=== PATIENT | female | born 1960 | race Caucasian/White ===

== ENCOUNTER 2020-02-02 07:05 | Outpatient (NON) | payer OTHER, SELFPAY ==
[2020-02-03 12:35] LABS: SARS-CoV-2 RNA PCR Negative
== END 2020-02-02 07:06 ==
LOC: ANHCOVIDDT 07:12
PROVIDERS: PCP Family Medicine; Visit Provider Family Medicine
DX: Z20.828 Contact with and (suspected) exposure to other viral communicable diseases (principal); R50.9 Fever, unspecified; J02.9 Acute pharyngitis, unspecified; R52 Pain, unspecified
CPT/HCPCS: 87635; C9803; U0003

== ENCOUNTER → 2021-08-18 08:39 | Outpatient (CLI) | payer OTHER, SELFPAY ==
--- NOTE | ~2021-08-18 | XR_ITS ---
EXAMINATION: XR knee RT min 4V DATE: 08/18/2021 08:57 INDICATION: Right knee pain TECHNIQUE: Four views of the right knee were obtained. COMPARISON: None. FINDINGS: Alignment is normal. No fracture or osteochondral lesion. There is mild tricompartmental os teoarthritis characterized by tiny marginal osteophytes and joint space narrowing. No joint effusion/ synovitis. Soft tissues are unremarkable. IMPRESSION: 1. Osteoarthritis Reviewed, dictated and finalized at location A. IMPRESSION: 1. Osteoarthritis
== END ==
PROVIDERS: PCP Orthopaedic Surgery; Visit Provider Family Medicine
DX: M17.11 Unilateral primary osteoarthritis, right knee (principal)
CPT/HCPCS: 73564

== ENCOUNTER 2021-08-21 10:32 | Outpatient (CLI) | payer OTHER, SELFPAY ==
--- NOTE | ~2021-08-21 | US_ITS ---
EXAMINATION: US venous doppler LE RT DATE: 08/21/2021 11:10 INDICATION: Right lower limb pain TECHNIQUE: Grayscale ultrasound images without and with compression and Doppler ultrasound images of the right lower extremity veins were obtained. COMPARISON: None. FINDINGS: The visualized portions of right common femoral vein, profunda (deep) femoral vein, femoral vein, pop liteal vein, peroneal trunk, posterior tibial veins, peroneal veins, lesser saphenous vein and greate r saphenous vein outflow are patent. IMPRESSION: 1. No deep venous thrombosis in the right lower limb. Reviewed, dictated and finalized at location B.
== END 2021-08-21 10:33 | disposition home or self-care (01) ==
PROVIDERS: PCP Family Medicine; Visit Provider Orthopaedic Surgery
DX: M79.604 Pain in right leg (principal)
CPT/HCPCS: 93971

== ENCOUNTER → 2022-10-26 15:45 | Outpatient (CLI) | payer OTHER, SELFPAY ==
--- NOTE | ~2022-10-26 | XR_ITS ---
XR hip RT min 2V DATE: 10/26/2022 15:53 INDICATION: Low back pain, right sciatica TECHNIQUE: AP and lateral views of right hip COMPARISON: None FINDINGS: There is prominent joint space and spurring consistent with moderately severe right hip ost eoarthritis. The pubic symphysis and sacral iliac joints are intact. No right hip fracture, dislocation, avascular necrosis or bone destruction is detected. IMPRESSION: Moderately severe right hip osteoarthritis Reviewed, dictated and finalized at location B.
--- NOTE | ~2022-10-26 | XR_ITS ---
XR lumbar spine 2-3V DATE: 10/26/2022 15:51 INDICATION: Low back pain, right sciatica TECHNIQUE: AP, lateral, coned lateral lumbosacral views COMPARISON: None FINDINGS: Normal alignment of the lumbar spine. No fracture or bone destruction or spondylolisthesis. The included lower thoracic and lumbar pedicles are intact. There is multilevel degenerative disc disease, most prominent at L4-5 and L5-S1. The sacroiliac joints are intact. Status post cholecystectomy. IMPRESSION: Moderately severe degenerative disc disease at L4-5 and L5-S1 Reviewed, dictated and finalized at location B.
== END ==
PROVIDERS: PCP Family Medicine; Visit Provider Physician Assistant
DX: M54.16 Radiculopathy, lumbar region (principal); M16.11 Unilateral primary osteoarthritis, right hip; M51.36 Other intervertebral disc degeneration, lumbar region; M51.37 Other intervertebral disc degeneration, lumbosacral region
CPT/HCPCS: 72100; 73502

== ENCOUNTER 2022-11-13 08:15 | Outpatient (CLI) | payer OTHER, SELFPAY ==
[2022-11-13 10:13] LABS: Basophils Percent Auto 0.8 % (0.2-1.2); Eosinophils Absolute Auto 0.2 K/mm3 (0-0.3); Eosinophils Percent Auto 3.6 % (0-4.4); Hematocrit 41.3 % (37.0-47.0); Hemoglobin 13.4 g/dL (12.0-15.0); Immature Granulocyte Absolute 0.01 K/mm3 (0.00-0.031); Immature Granulocyte Percent A 0.2 % (0-0.5); Lymphocytes Absolute Auto 1.66 K/mm3 (0.9-3.2); Lymphocytes Percent Auto 34.7 % (18.3-44.2); Mean Corpuscular HGB Conc 32.4 g/dl (32-36); Mean Corpuscular Hemoglobin 30.2 pg (26-34); Mean Platelet Volume 11.1 fl (7.4-10.4); Monocytes Absolute Auto 0.3 K/mm3 (0.1-0.6); Monocytes Percent Auto 6.9 % (2.6-8.5); Neutrophils Absolute Auto 2.6 K/mm3 (1.3-6.7); Neutrophils Percent Auto 53.8 % (45.5-73.1); Platelet Count Result 240 k/mm3 (150-375); Red Blood Count 4.44 M/mm3 (4.2-5.4); White Blood Count 4.8 K/mm3 (4.5-10.0)
[2022-11-13 10:28] LABS: Alanine Aminotransferase 22 U/L (6-35); Albumin Level 4.1 g/dL (3.5-5.1); Alkaline Phosphatase 74 U/L (38-126); Anion Gap 6 mmol/L (8-16); Aspartate Amino Transferase 32 U/L (14-36); Bilirubin,Total 0.8 mg/dL (0.2-1.3); Blood Urea Nitrogen 25 mg/dL (7-17); Calcium 9.2 mg/dL (8.4-10.2); Carbon Dioxide 31 mmol/L (22-30); Chloride 103 mmol/L (98-107); Cholesterol 225 mg/dL (0-200); Estimated Glomerular Filt Rate > 60; Glucose 91 mg/dL (65-110); HDL Direct 61 mg/dL; Potassium 4.8 mmol/L (3.4-5.0); Sodium 140 mmol/L (137-145); Triglycerides 113 mg/dL (<150)
[2022-11-13 10:46] LABS: LDL Cholesterol Direct 115 mg/dL
[2022-11-13 20:59] LABS: Hemoglobin A1C 5.2 % (<5.7)
== END 2022-11-13 08:16 | disposition home or self-care (01) ==
LOC: ANHGOSHLAB 08:16
PROVIDERS: PCP Family Medicine; Visit Provider Family Medicine
DX: E78.2 Mixed hyperlipidemia (principal); E66.9 Obesity, unspecified; E04.9 Nontoxic goiter, unspecified
CPT/HCPCS: 36415; 80053; 80061; 83036; 84443; 85025

== ENCOUNTER 2023-05-09 15:18 | Emergency (ER) | payer OTHER, SELFPAY ==
--- NOTE | 2023-05-09 15:29 | ED.FEMALEGU ---
HPI - Female Genitourinary General Chief complaint: Urogenital-Female Stated complaint: uti,bladder/kidney inf Source: patient and RN notes reviewed Mode of arrival: ambulatory Limitations: no limitations History of Present Illness HPI Narrative: 63-year-old female presented for complaint of lower abdominal/suprapubic pressure and lower abdominal pain. Onset yesterday, Worsening today. Reports back pain is in the middle of the lower back. Denies burning with urination but endorses pressure and 'could go for a long time.' Denies hematuria, nausea, vomiting, abdominal pain, flank pain, constipation, diarrhea, or fever. States she felt like she could not get warm. Related Data Allergies Allergy/AdvReac Type Severity Reaction Status Date / Time No Known Allergies Allergy Verified 05/09/23 15:25 Review of Systems Review of Systems: CONSTITUTIONAL: Denies body aches, fever, chills, or sweats. CARDIOVASCULAR: Denies chest pain, palpitations, or edema. RESPIRATORY: Denies cough or dyspnea. GASTROINTESTINAL: Denies abdominal pain, nausea, vomiting, or diarrhea. GENITOURINARY: Reports dysuria, frequency, urgency, denies hematuria, flank pain SKIN: Denies rash, itching, or wounds. MUSCULOSKELETAL: Denies back pain or myalgia. 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 Please see nursing chart for further information. There is no relevant family history pertinent to the presenting complaint Exam Narrative: GENERAL: Well-appearing ENT: Mucous membranes pink and moist. NECK: Normal AROM. Supple. CHEST: No respiratory distress. Clear to auscultation. HEART: Regular rate and rhythm. ABDOMEN: Soft, nondistended, normal active bowel sounds. Suprapubic tenderness with palpation. No CVA tenderness SKIN: Warm, dry, no rash. NEURO: No focal deficits. Alert and oriented x3. Gait steady. PSYCH: Normal affect. Course Course Emergency Course: Patient is aware of diagnosis, understands and agrees to treatment plan. Anticipatory guidance given. Patient agrees to follow-up as directed and is aware of reasons to seek care at the emergency department. Portions of this record may have been created with voice recognition software Level of Care: Express Care Visit Vital Signs Vital signs: Reviewed MDM - Female Genitourinary MDM Narrative Medical decision making narrative: Discussed physical exam findings and urine result. Advised supportive measures and signs/symptoms to go to the ER. Pt is appropriate for outpt treatment and f/u. Differential Diagnosis Differential diagnosis: Likely urinary tract infection, cystitis and other Discharge Plan Discharge Clinical Impression: Dysuria Patient Disposition: Home, Self-Care Condition: Stable Instructions: Antibiotic Form, Urinary Tract Infection in Women (ED) Additional Instructions: Take the antibiotic as prescribed The urine will be sent of for a culture to identify what type of melissa
[2023-05-09 15:31] VITALS: BP 111/81; PULSE 86; RESP 16; TEMP 37.3; O2SAT 99
== END 2023-05-09 15:46 | disposition home or self-care (01) ==
PROVIDERS: Emergency Provider Nurse Practitioner Family; PCP Family Medicine
DX: N39.0 Urinary tract infection, site not specified (principal); B96.20 Unspecified Escherichia coli [E. coli] as the cause of diseases classified elsewhere; M19.90 Unspecified osteoarthritis, unspecified site
CPT/HCPCS: 81003; 87077; 87086; 87088; 87186; 99213; G0463

== ENCOUNTER 2024-01-18 08:48 | Outpatient (CLI) | payer OTHER, SELFPAY ==
[2024-01-18 13:38] LABS: Alanine Aminotransferase 17 U/L (6-35); Albumin Level 4.2 g/dL (3.5-5.1); Alkaline Phosphatase 76 U/L (38-126); Anion Gap 5 mmol/L (4-12); Aspartate Amino Transferase 49 U/L (14-36); Bilirubin,Total 1.4 mg/dL (0.2-1.3); Blood Urea Nitrogen 22 mg/dL (7-17); Calcium 9.4 mg/dL (8.4-10.2); Carbon Dioxide 31 mmol/L (22-30); Chloride 103 mmol/L (98-107); Cholesterol 236 mg/dL (0-200); Estimated Glomerular Filt Rate > 60; Glucose 87 mg/dL (65-110); HDL Direct 63 mg/dL; Potassium 4.5 mmol/L (3.4-5.0); Sodium 139 mmol/L (137-145); Triglycerides 125 mg/dL (<150)
[2024-01-18 13:47] LABS: Basophils Absolute Auto 0.1 K/mm3 (0.0-0.1); Eosinophils Absolute Auto 0.3 K/mm3 (0-0.3); Eosinophils Percent Auto 5.6 % (0-4.4); Hematocrit 42.2 % (37.0-47.0); Hemoglobin 13.8 g/dL (12.0-15.0); Immature Granulocyte Absolute 0.01 K/mm3 (0.00-0.031); Immature Granulocyte Percent A 0.2 % (0-0.5); Lymphocytes Absolute Auto 1.62 K/mm3 (0.9-3.2); Lymphocytes Percent Auto 33.7 % (18.3-44.2); Mean Corpuscular HGB Conc 32.7 g/dl (32-36); Mean Corpuscular Hemoglobin 31.4 pg (26-34); Mean Corpuscular Volume 95.9 fl (80-100); Mean Platelet Volume 11.3 fl (7.4-10.4); Monocytes Absolute Auto 0.4 K/mm3 (0.1-0.6); Monocytes Percent Auto 9.1 % (2.6-8.5); Neutrophils Absolute Auto 2.4 K/mm3 (1.3-6.7); Neutrophils Percent Auto 50.4 % (45.5-73.1); Platelet Count Result 223 k/mm3 (150-375); Red Cell Distribution Width 12.2 % (11.5-14.5); White Blood Count 4.8 K/mm3 (4.5-10.0)
[2024-01-18 14:07] LABS: LDL Cholesterol Direct 113 mg/dL
[2024-01-18 17:17] LABS: Hemoglobin A1C 5.6 % (<5.7)
== END 2024-01-18 08:49 | disposition home or self-care (01) ==
LOC: ANHGOSHLAB 08:49
PROVIDERS: PCP Family Medicine; Visit Provider Family Medicine
DX: Z00.00 Encounter for general adult medical examination without abnormal findings (principal); E04.9 Nontoxic goiter, unspecified
CPT/HCPCS: 36415; 80053; 80061; 83036; 84443; 85025

== ENCOUNTER 2024-03-31 15:00 | Outpatient (CLI) | payer OTHER, SELFPAY ==
--- NOTE | ~2024-03-31 | MM_ITS ---
EXAMINATION: MM screening jeana BI w timbo HISTORY: Screening TECHNIQUE: Craniocaudal and mediolateral oblique 3-D tomosynthesis images were obtained and synthetic 2-D images were generated. CAD analysis was submitted and interpreted. COMPARISON: 03/03/2019 BREAST PARENCHYMAL COMPOSITION: Not Dense: The breasts are almost entirely fatty. FINDINGS: There is no evidence of suspicious mass, calcification, or architectural distortion to sugg est malignancy in either breast. There has been no suspicious interval change. IMPRESSION: 1. No mammographic evidence of malignancy. 2. Recommend routine screening mammography in one year. BI-RADS Category 1: Negative Reviewed, dictated and finalized at location B. ICATION DEVELOPMENT PROJECT MANAGER
--- OUTSIDE RECORDS SUMMARY | 2024-03-31 15:28 | XMS_ITS | Patient Health Summary ---
Author Organization [facility] Address [address] [place] [address] Care Team Providers Care Band Shover Name Role Phone Starr Werner MD Primary Care Provider [phone] Note from [facility],non-owned Affiliates and Associated Physician Practices is amultiple site organization consisting of ambulatory clinics and hospital sitesin [place], [place], [place] and [place]. This disclosure is being madepursuant to the Care Everywhere program and may not contain all information available regarding this patient. Last updated 17.[facility] Social History Tobacco Use Types Packs/Day Years Used Date Smoking Tobacco: Never Assessed Sex and Gender Information Value Date Recorded Sex Assigned at Not on file Gender Identity Not on file Sexual Orientation Not on file Care Teams Band Shover Relationship Specialty Start Date End Date Starr Wrener MD [address] [place] [address] PCP - General Family Medicine 08/20/22
--- OUTSIDE RECORDS SUMMARY | 2024-03-31 15:28 | XMS_ITS | Clinical Summary ---
Author Organization [facility] Address [address] [place] [address] Care Team Providers Care Buccaro Name Role Phone Starr Werner MD Primary Care Provider [phone] Source Comments [facility],non-owned Affiliates and Associated Physician Practices is amultiple site organization consisting of ambulatory clinics and hospital sitesin [place], [place], [place]. This disclosure is being madepursuant to the Care Everywhere program and may not contain all information available regarding this patient. Last updated 17.[facility] Social History Tobacco Use Types Packs/Day Years Used Date Smoking Tobacco: Never Assessed Sex and Gender Information Value Date Recorded Sex Assigned at Not on file Gender Identity Not on file Sexual Orientation Not on file Plan of Treatment Health Maintenance Due Date Last Done Comments COLOGUARD (AGES 45-75) - COL ON CA SCREENING 1962 COLON MONITORING 1962 COLONOSCOPY - COLON CA SCREENING 1962 CT COLONOGRAPHY - COLON CA SCREENING 1962 Colorectal Cancer Screening 1962 FIT - COLON CA SCREENING 1962 FLEX SIG - COLON CA SCREENING 1962 LIPID TESTING 1962 MAMMOGRAM 1962 PAP SMEAR 1962 HIV SCREENING 1977 HEPATITIS C SCREENING 01/22/1980 DTAP/TDAP/TD VACCINES (1 - Tdap) 1981 PNEUMOCOCCAL VACCINE 50+ (1 of 1 - PCV) 01/27/2012 ZOSTER VACCINE (1 of 2) 01/27/2012 COVID-19 VACCINE (1 - 2023-2 5 season) 2023 INFLUENZA VACCINE (#1) 2023 DEPRESSION SCREENING 03/01/2024 Respiratory Syncytial Virus (RSV) Vaccine Pt: or over 60 yrs (1 - 1-dose 75+ series) 2037 HEPATITIS B VACCINE Aged Out No longe r eligible based on patient's age to complete this topic HIB VACCINE Aged Out No longer eligi ble based on patient's age to complete this topic HPV VACCINE Aged Out No longer eligi ble based on patient's age to complete this topic MENINGOCOCCAL (Group B) VACCINE Aged Out No longer eligible based on patient's age to complete this topic MENINGOCOCCAL VACCINE Aged Out No ariella annabel eligible based on patient's age to complete this topic PNEUMOCOCCAL VACCINE Aged Out No long er eligible based on patient's age to complete this topic Care Teams Buccaro Relationship Specialty Start Date End Date Starr Werner MD [address] [place] [address] PCP - General Family Medicine 08/20/22
--- OUTSIDE RECORDS SUMMARY | 2024-03-31 15:28 | XMS_ITS | Clinical Summary ---
Author Organization [facility] Address [address] [place] [address]. [place], [place] [address] [place] [address] Care Team Providers Care Hospice Coordinator Name Role Phone Unavailable Primary Care Provider Unavailabl e Social History Tobacco Use Types Packs/Day Years Used Date Smoking Tobacco: Never Assessed Comments Unknown Sex and Gender Information Value Date Recorded Sex Assigned at Not on file Legal Sex Female 7:24 PM CDT Gender Identity Not on file Sexual Orientation Not on file Last Filed Vital Signs Vital Sign Reading Time Taken Comments Blood Pressure 100/70 01/28/2017 2:01 PM CRIMINAL LAWYER Pulse 76 01/28/2017 2:01 PM CRIMINAL LAWYER Temperature - - Respiratory Rate - - Oxygen Saturation - - Inhaled Oxygen Concentration - - Weight 103 kg (227 lb) 01/28/2017 2:01 PM CRIMINAL LAWYER Height 169.5 cm (5' 6.75 ) 01/28/2017 2:01 PM CS T Body Mass Index 35.82 01/28/2017 2:01 PM CRIMINAL LAWYER Plan of Treatment Health Maintenance Due Date Last Done Comments Cervical Cancer Screening Pa p Smear (Age 30 to 64) Every 3 Years 1962 Colorectal Cancer Screening Colonoscopy (10 Years) 1962 Annual Physical 1965 Hepatitis C 01/27/1980 DTaP, Tdap and Td Vaccines ( 1 - Tdap) 1981 Cervical Cancer Screening Pa p with HPV Testing (Age 30 to 64) Every 5 Years 01/27/1992 Cervical Cancer Screening with HPV 01/27/1992 Mammogram Screening 2002 Zoster Vaccines (1 of 2) 01/27/2012 COVID-19 Vaccine ( - 2023-2 5 season) 2023 Influenza Adult (#1) 2023 RSV Immunization or 60+ Years (1 - 1-dose 75+ series) 2037 Meningococcal B Vaccine Aged Out No l onger eligible based on patient's age to complete this topic Meningococcal Vaccine Aged Out No ariella annabel eligible based on patient's age to complete this topic Pneumococcal Vaccine: Pediat rics (0 to 5 Years) and At-Risk Patients (6 to 64 Years) Aged Out No longer eligible b ased on patient's age to complete this topic RSV Immunizations Under 20 Months Aged Out No longer eligible based on patient's age to complete this topic
--- OUTSIDE RECORDS SUMMARY | 2024-03-31 15:28 | XMS_ITS | Referral Summary ---
Author Organization [facility] Address [address] [place] [address] Care Team Providers Care Dining Room Maid Name Role Phone Starr Werner MD Primary Care Provider [phone] Source Comments [facility],non-owned Affiliates and Associated Physician Practices is amultiple site organization consisting of ambulatory clinics and hospital sitesin [place], [place], [place] and [place]. This disclosure is being madepursuant to the Care Everywhere program and may not contain all information available regarding this patient. Last updated 17.[facility] Social History Tobacco Use Types Packs/Day Years Used Date Smoking Tobacco: Never Assessed Sex and Gender Information Value Date Recorded Sex Assigned at Not on file Gender Identity Not on file Sexual Orientation Not on file Plan of Treatment Not on file Care Teams Dining Room Maid Relationship Specialty Start Date End Date Starr Werner MD [address] [place] [id number] PCP - General Family Medicine 08/20/22
== END 2024-03-31 15:01 | disposition home or self-care (01) ==
LOC: ANHIMG 15:23
PROVIDERS: PCP Family Medicine; Visit Provider Family Medicine
DX: Z12.31 Encounter for screening mammogram for malignant neoplasm of breast (principal)
CPT/HCPCS: 77063; 77067

== ENCOUNTER 2024-05-13 15:31 | Emergency (ER) | payer OTHER, SELFPAY ==
--- NOTE | 2024-05-13 15:37 | ED_ITS ---
HPI - URI/Sore Throat General Chief Complaint: Upper Respiratory Infection Stated Complaint: upper resp, cough Source: patient and RN notes reviewed Mode of arrival: ambulatory Limitations: no limitations History of Present Illness HPI Narrative: 64-year-old female presented for complaint of frontal headache, nasal congestion and drainage, and cough. Onset 1 month, states she felt better for several days and then symptoms returned over the past few days. Denies associated shortness of breath, wheezing, nausea, vomiting, diarrhea, fevers or lethargy. MD elicited complaint: cough Related Data Allergies Allergy/AdvReac Type Severity Reaction Status Date / Time No Known Allergies Allergy Verified 05/13/24 15:47 Review of Systems Review of Systems: ROS per HPI [facility] Past Medical History Medical History (Updated 05/13/24 @ 16:02 by Margoth Mcdowell APRN) Arthritis Hordeolum Surgical History Surgical History (Updated 12/30/23 @ 14:40 by Cheyenne Lemus MA) History of total right hip replacement History of left knee surgery History of cholecystectomy Family History Family History Sibling Family history of malignant neoplasm of breast in first degree relative Family history of alcoholism Other Depression Social History Social History Smoking status: Never smoker Second hand tobacco smoke exposure: No Alcohol intake: current Substance use: never Living arrangements: with family Occupation/Education: occupation 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 EYES: PERRLA, conjunctivae clear ENT: Mucous membranes moist. TM pearly zaidi with dull light reflex bilaterally; no tragal tenderness. Oropharynx erythematous without lesions or exudate, no drooling, no hoarseness, no trismus, uvula midline. NECK: Supple. No lymphadenopathy CHEST: Clear to auscultation, breath sounds equal. No wheezing, rhonchi, rales, or stridor. No respiratory distress, speaks in full sentences. HEART: Regular rate and rhythm. SKIN: Warm, dry, no rash. NEURO: Alert and oriented x3. PSYCH: Normal mood and affect Course Course Emergency Course: Patient is aware of diagnosis, understands and agrees to treatment plan. Anticipatory guidance given. Patient agrees to follow-up as directed and is aware of reasons to seek care at the emergency department. Portions of this record may have been created with voice recognition software Level of Care: Express Care Visit Vital Signs Vital signs: Vital Signs Pulse Oximetry 99 05/13/24 15:45 Oxygen Delivery Room Air 05/13/24 15:45 Temperature 98.2 F 05/13/24 15:46 Pulse Rate 76 05/13/24 15:46 Respiratory Rate 16 05/13/24 15:46 Blood Pressure 134/89 05/13/24 15:46 Pulse Oximetry 100 05/13/24 15:46 Oxygen Delivery Room Air 05/13/24 15:46 reviewed MDM - URI/Sore Throat MDM Narrative Medical decision making narrative: Negative flu and COVID. Discussed physical exam findings c/w sinusitis Advised supportive measures and signs/symptoms to go to the ER. Pt is appropriate for outpt treatment and f/u. Differential Diagnosis Differential diagnosis: Likely upper respiratory infection, sinusitis and viral infection Discharge Plan Discharge Clinical Impression: Sinusitis Patient Disposition: Home, Self-Care Condition: Stable Instructions: Antibiotic Form, Sinusitis (ED) Additional Instructions: Take antibiotic as directed Recommendations: Flonase spray and Zyrtec (or Claritin/Isamar) over the counter Cough syrup may cause drowsiness; avoid driving or take it at night time. Tylenol 1000mg every 8 hours as needed for pain Symptomatic treatment includes: rest, fluids, and increase humidity of the air at home. Follow up with your primary care provider in 1 week. Go to the ER for worsening symptoms or concerns. Patient Language: Bulgarian Prescriptions: New amoxicillin-pot clavulanate 875-125 mg tablet 1 tablet PO Q12H 7 Days Qty: 14 0RF Follow-up/Referrals: Starr Werner MD [Primary Care Provider] -
[2024-05-13 15:45] VITALS: O2SAT 99
[2024-05-13 15:46] VITALS: BP 134/89; PULSE 76; RESP 16; TEMP 36.8; O2SAT 100
[2024-05-13 16:06] LABS: EDCOVIDSCREEN Negative (Negative); EDINFLUASCREEN Negative (Negative); EDINFLUBSCREEN Negative (Negative)
== END 2024-05-13 16:07 | disposition home or self-care (01) ==
PROVIDERS: Emergency Provider Nurse Practitioner Family; PCP Family Medicine
DX: J32.9 Chronic sinusitis, unspecified (principal); Z20.822 Contact with and (suspected) exposure to COVID-19; M19.90 Unspecified osteoarthritis, unspecified site; Z96.641 Presence of right artificial hip joint
CPT/HCPCS: 87426; 87804; 99213; G0463

== ENCOUNTER 2024-06-07 09:23 | Outpatient (CLI) | payer OTHER, SELFPAY ==
--- NOTE | ~2024-06-07 | DEXA_ITS ---
Bone Density Report Name: MARIA TERESA ONTIVEROS Age: 64 Sex: Female Ethnicity: White Date of : 1960 Indication: postmenopausal; screening for osteoporosis; height loss; prior fracture; Referring Provider: CAITLYN SILVA Study: Bone densitometry was performed. Exam Date: June 07, 2024 Accession number: [id number] Bone Density: Region BMD T-score Z-score Classification AP Spine(L1-L4) 0.987 -0.5 1.0 Normal Femoral Neck (Left) 0.679 -1.5 -0.1 Osteopenia Total Hip (Left) 0.819 -1.0 0.1 Normal World Health Organization criteria for BMD impression classify patients as: Normal (T-score at or above -1.0), Osteopenia (T-score between -1.0 and -2.5), or Osteoporosis (T-score at or below -2.5). 10-year Fracture Risk(1): Major Osteoporotic Fracture 13% Hip Fracture 1.2% Reported Risk Factors: [place] (), Neck BMD=0.679, BMI=37.0, previous fracture (1) FRAX(R) Version 3.08. Fracture probability calculated for an untreated patient. Fracture probability may be lower if the patient has received treatment. Clinical Information Provided by Patient: Has had a low trauma fracture Has used the following medications: Vitamin D, Calcium Patient maximum height was 68.0 Menopause Age: 44 Drinks caffeinated beverages Onset of menses at age 15 Number of children 2 Impression: The patient has low bone mass, based on the Left Femoral Neck T-score. The patient has an estimated ten-year risk of hip fracture of 1.2% and an estimated ten-year risk of major fracture of 13%, based on the WHO FRAX algorithm. The patient has risk factors, including: previous fracture. Discussion: BONE DENSITY IS LOW AT ONE OR MORE SKELETAL SITES. This patient's lowest T-score is low at one or more skeletal sites. It meets the World Health Organization's (WHO) criteria for ?low bone mass? (T-score between -1.0 and -2.5). The patient's 10-year risk of fracture as calculated by FRAX is less than the threshold where pharmacological therapy is recommended by the National Osteoporosis Foundation (NOF). However, all treatment decisions require clinical judgment and consideration of individual patient factors, including patient preferences, comorbidities, previous drug use, risk factors not captured in the FRAX model (e.g., frailty, falls, vitamin D deficiency, increased bone turnover, interval significant decline in bone density) and possible under or overestimation of fracture risk by FRAX. The patient should follow a healthful lifestyle (good nutrition with adequate calcium and vitamin D, and appropriate weight-bearing exercise). Follow-Up: Consider repeating this study in 2 to 3 years to reassess this patient's status, or sooner if there is some new clinical indication. Reported by: EMILE on 06/07/2024 9:57:00 AM. Reviewed, dictated and finalized at location [facility]
--- OUTSIDE RECORDS SUMMARY | 2024-06-07 10:21 | XMS_ITS | Referral Summary ---
Author Organization [facility] Address [address] [place] [id number] Care Team Providers Care Helmet Coverer Name Role Phone Starr Werner MD Primary Care Provider + Allergies No known active allergies Medications amoxicillin 500 mg tablet/capsuleIn dications:Prophy lactic antibiotic TAKE 4 PILL 1 HOUR BEFORE DENTAL APPOINTMENT . 4 tablet/capsul e 5 04/19/2023 Active Active Problems Problem Noted Date Diagnosed Date Degeneration of lumbar intervertebral disc 12/01 Low back pain 12/01/2022 Lumbar radiculopathy 12/01/2022 Lumbosacral spondylosis without myelopathy 12/01 Primary localized osteoarthritis of pelvic regio n and thigh 12/01/2022 Primary osteoarthritis 12/01/2022 Pain in right knee 12/01/2022 Right hip pain 12/01/2022 Sacroiliitis, not elsewhere classified Osteoarthritis of left knee, unspecified osteoarthritis type 08/20/2022 Class 2 obesity in adult 08/04/2022 Primary osteoarthritis of left knee 06/15/2022 Complex tear of medial menis cus of right knee as current injury 11/14/2021 Overview (11/14/2021): Added automatically from request for surgery [id number] Social History Tobacco Use Types Packs/Day Years Used Date Smoking Tobacco: Never Smokeless Tobacco: Never AUDIT-C Answer Date Recorded Q1: How often do you have a drink containing alc ohol? 2-4 times a month 01/15/2023 Average Number of Drinks Not on file 023 Frequency of Binge Drinking Not on file 12/30 Personal Safety Answer Date Recorded Have you ever been in or are you currently in a harmful physical or emotional relationship or is someone making you feel afraid or unsafe? Denies 01/15/2023 Comments No Sex and Gender Information Value Date Recorded Sex Assigned at Not on file Legal Sex Female 3:55 PM CDT Gender Identity Not on file Sexual Orientation Not on file Last Filed Vital Signs Vital Sign Reading Time Taken Comments Blood Pressure 118/58 01/15/2023 11:15 AM LAWYER Pulse 65 01/15/2023 11:20 AM LAWYER Temperature 36 C (96.8 F) 01/15/2023 11:05 AM LAWYER Respiratory Rate 24 01/15/2023 11:20 AM LAWYER Oxygen Saturation 99% 01/15/2023 11:20 AM LAWYER Inhaled Oxygen Concentration - - Weight 106.6 kg (235 lb) 01/15/2023 5:56 AM LAWYER Height 167.6 cm (5' 6 ) 01/15/2023 5:56 AM LAWYER Body Mass Index 37.93 01/15/2023 5:56 AM LAWYER Plan of Treatment Not on file Medical Devices Implanted Type Area Fisher Swordfish Device Identifier Shelf Expiration Date Model / Serial / Lot [employer] Smartset Medium Viscosity Cement 40gm Bone Gentamicin [id number] - [id number] Implanted:Qty: 1 on 08/20/2022 by Brandon Luis MD at [facility] Bone Cement Left: Knee [employer] [id number] 12/30/2023 [id number] / / Screws Left: Knee [employer] Attune Cruciate Retain Cementless Knee Left 7 Component Femoral [id number] - [id number] Implanted:Qty: 1 on 08/20/2022 by Brandon Luis MD at [facility] Left: Knee [employer] [id number] 06/28/2032 [id number] / / [employer] Insert Tibial Knee Fixed Lm Posterior Stabilized Attune 7mm Size 7 Polyethylene [id number] - [id number] Implanted:Qty: 1 on 08/20/2022 by Brandon Luis MD at [facility] Left: Knee [employer] [id number] 05/29/2030 [id number] / / [employer] Attune Fb Tib Base Sz 7 Por [id number] - [id number] Implanted:Qty: 1 on 08/20/2022 by Brandon Luis MD at [facility] Left: Knee [employer] [id number] 05/29/2032 [id number] / / [employer] Bi Mentum 53mm Press Fit Femoral Proximal Cup Acetabular [id number] - [id number] Implanted:Qty: 1 on 01/15/2023 by Brandon Luis MD at [facility] Right: Hip [employer] [id number] / / [id number] [employer] Liner Acet Hip Size 28 Poly Bi Mentum Altrx 53mm [id number] - [id number] Implanted:Qty: 1 on 01/15/2023 by Brandon Luis MD at [facility] Right: Hip [employer] 10/29/2026 [id number] / / [id number] Dep[employer] Actis L111 Mm Collar Hip 8 High Offset Stem Femoral [id number] - [id number] Implanted:Qty: 1 on 01/15/2023 by Brandon Luis MD at [facility] Right: Hip [employer] [id number] 06/28/2032 [id number] / / [id number] [employer] Articul/Clarence 28mm Cementless Hip +1.5mm 12/14 Taper Head Femoral Latex Free [id number] - [id number] Implanted:Qty: 1 on 01/15/2023 by Brandon Luis MD at [facility] Right: Hip [employer] 09/29/2027 [id number] / / [id number] Insurance [facility] [employer] H[facility]/PPO Address: [address] [place] [address] [facility] [employer] H[facility]/PPO Address: [address] [place] [address] Advance Directives For more information, please contact: [phone] * Full Code (Latest Code Status on File) Date Activated Date Inactivated Comments 08/20/2022 8:32 AM 08/20/2022 4:30 PM Care Teams Helmet Coverer Relationship Specialty Start Date End Date Starr Werner MD PCP - General Family Medicine 11/14/21
--- OUTSIDE RECORDS SUMMARY | 2024-06-07 10:21 | XMS_ITS | Clinical Summary ---
Author Organization [email or web address] Address [address] [place] [address] Care Team Providers Care Cooker Process Cheese Name Role Phone Starr Werner MD Primary Care Provider [phone] Source Comments [facility],non-owned Affiliates and Associated Physician Practices is amultiple site organization consisting of ambulatory clinics and hospital sitesin [place], [place], [place]. This disclosure is being madepursuant to the Care Everywhere program and may not contain all information available regarding this patient. Last updated 17.[email or web address] Social History Tobacco Use Types Packs/Day Years [...] to complete this topic MENINGOCOCCAL (Group B) VACC INE SHARED DECISION-MAKING Aged Out No longer eligibl e based on patient's age to complete this topic MENINGOCOCCAL GROUPS A/C/Y/W VACCINE Aged Out No longer eligible b ased on patient's age to complete this topic PNEUMOCOCCAL VACCINE Aged Out No long er eligible based on patient's age to complete this topic Care Teams Cooker Process Cheese Relationship Specialty Start Date End Date Starr Werner MD [address] [place] [address] PCP - General Family Medicine 08/20/22
--- OUTSIDE RECORDS SUMMARY | 2024-06-07 10:21 | XMS_ITS | Patient Health Record ---
Author Organization [facility] Address [address] [place] [address] MAGALIS Sotomayor [address] Care Team Providers Care Admissions Coordinator Name Role Phone CAITLYN SILVA MD Primary Care Provider Unav ailable Janes Escobar Unavailable [phone] ALLERGIES No Known Allergies REASON FOR REFERRAL No Information MEDICATIONS Medication SIG (Take, Route, Frequency, Duration) Notes Start Date End Date Status Meloxicam 15 MG 1 tablet Orally Once a day for 30 day(s) Active Tylenol Extra Strength 500 MG 1 tablet as needed Orally every 6 hrs Active Magnesium Active oxyCODONE HCl 5 MG 1 tablet as needed O rally every 6 hrs Active traMADol HCl 50 MG 1 tablet as needed O rally Once a day Active SOCIAL HISTORY Tobacco Use: Social History Observation Description Date Details (start date - stop date) Never Smoker NA - NA Sex Assigned At : Social History Observation Description Sex Assigned At Unknown Tobacco Use/Smoking Question Answer Notes Are you a nonsmoker Alcohol Screen (Audit-C) Question Answer Notes Did you have a drink containing alcohol in the p ast year? No Points 0 Interpretation Negative PROBLEMS Problem Type ICD Code Onset Dates Problem Status W/U Status Risk SNOMED Code Notes Problem Morbid (severe) obesity due to excess calories (E66.01) Active confirmed Morbid obesity (disorder) (225259551) Problem Unilateral primary osteoarthritis, right hip (M16.11) Active confirmed Localized, primary osteoarthritis of the pelvic region and thigh (776508925) Problem Unilateral primary osteoarthritis, right knee (M17.11) Active confirmed Primary osteoarthritis (826192154) Problem Pain in right hip (M25.551) Active confirmed Arthralgia of t he pelvic region and thigh (213971898) Problem Pain in right knee (M25.561) Active confirmed Pain of right knee region (finding) (499758251613234) Problem Sacroiliitis, not elsewhere classified (M46.1) Active confirmed Solitary sacroiliitis (729289330) Problem Spondylosis without myelopathy or radiculopathy, lumbar region (M47.816) Active confirmed Lumbosacral spondylosis without myelopathy (17541539) Problem Spondylosis without myelopathy or radiculopathy, lumbosacral region (M47.817) Active confirmed Lumbosacral spondylosis without myelopathy (disorder) (88073295) Problem Other intervertebral disc degeneration, lumbar region (M51.36) Active confirmed Degeneration of lumbar intervertebral disc (73037344) Problem Radiculopathy, lumbar region (M54.16) Active confirmed Lumbar radiculopathy (947545178) Problem terminal carman (current) use of anticoagulants (Z79.01) Active confirmed Long-term curre nt use of anticoagulant (625512369) Problem Low back pain, unspecified (M54.50) Active confirmed Low back pain (993655054) PLAN OF TREATMENT Pending Test Test Name Order Date MRI : Lumbar Spine without contrast (721 48) 11/26/2022 Insurance Providers Payer Name Payer Address Payer Phone Subscriber Number Group Number Insured Name Patient Relationship to Insured Coverage Start Date Coverage End Date [facility] [address] [address] [place] [address] [phone] [id number] MARIA TERESA ONTIVEROS Self - patient is the insured MEDICAL (GENERAL) HISTORY Medical History History ICD Code Arthritis Surgical History Surgery Date(Month/Year) Left total knee arthroplasty-Dr. Luis 07/2022 Cholecystectomy
--- OUTSIDE RECORDS SUMMARY | 2024-06-07 10:21 | XMS_ITS | Clinical Summary ---
Author Organization [facility] Address [address] [place] [address] Care Team Providers Care Livestock Sales Representative Name Role Phone Starr Werner MD Primary [...] (11/14/2021): Added automatically from request for surgery [id number] Surgical History Surgery Date Site/Laterality Comments KNEE SURGERY 03/01/1990 - 02/28/1991 Left KNEE ARTHROSCOPY W/ ACL RECONSTRUCTION 09/29/1990 - 10/29/1990 Left KNEE HARDWARE REMOVAL 03/01/1991 - 02/29/1992 Left ARTHROSCOPIC REPAIR ACL 03/01/2005 - 02/28/[address] KNEE HARDWARE REMOVAL 03/01/2005 - 02/28/2006 Left KNEE ARTHROSCOPY 03/01/2009 - 02/28/2010 Left CHOLECYSTECTOMY 03/01/2015 - 02/29/2016 MENISCECTOMY 10/30/2021 - 11/28/2021 Right Medical History Medical History Date Comments Awareness under anesthesia Family History Medical History Relation Name Comments Blood Clot Mother Anesthesia problems Neg Hx Relation Name Status Comments Mother Social History Tobacco Use Types Packs/Day Years [...] on file Sexual Orientation Not on file Obstetrics History Last Filed Vital Signs Vital Sign Reading Time Taken Comments Blood Pressure 118/58 01/15/2023 11:15 AM GIFT CONSULTANT Pulse 65 01/15/2023 11:20 AM GIFT CONSULTANT Temperature 36 C (96.8 F) 01/15/2023 11:05 AM GIFT CONSULTANT Respiratory Rate 24 01/15/2023 11:20 AM GIFT CONSULTANT Oxygen Saturation 99% 01/15/2023 11:20 AM GIFT CONSULTANT Inhaled Oxygen Concentration - - Weight 106.6 kg (235 lb) 01/15/2023 5:56 AM GIFT CONSULTANT Height 167.6 cm (5' 6 ) 01/15/2023 5:56 AM GIFT CONSULTANT Body Mass Index 37.93 01/15/2023 5:56 AM GIFT CONSULTANT Plan of Treatment Health Maintenance Due Date Last Done Comments Breast Cancer Screening-Mammogram 1962 Cervical Cancer Screening 1962 Colon Cancer Screening-Colonoscopy 1962 Depression Screening 1962 Hepatitis C Screening 1962 DTaP/Tdap/Td Vaccine (1 - Tdap) 1973 Hepatitis B Screening 01/27/1980 Regular Well Visit/Exam 18-64 01/27/1980 Zoster Vaccine (1 of 2) 01/27/2012 Covid-19 Vaccine (2023-2 5 season) 2023 03/02/2021, 07/16/2020, 06/18/2020 Influenza Vaccine (#1) 2023 Pneumococcal vaccine <65 Aged Out No longer eligible based on patient's age to complete this topic Medical Devices Implanted Type Area Die Developer Device Identifier Shelf Expiration Date Model / Serial / Lot [employer] Smartset Medium Viscosity Cement 40gm Bone Gentamicin [id number] - [id number] Implanted:Qty: 1 on 08/20/2022 by Brandon Luis MD at [facility] Bone Cement Left: Knee [employer] [id number] 12/30/2023 [id number] / / Screws Left: Knee [employer] Attune Cruciate Retain Cementless Knee Left 7 Component Femoral [id number] - [id number] Implanted:Qty: 1 on 08/20/2022 by Brandon Luis MD at [facility] Left: Knee [employer] [id number] 06/28/2032 [id number] / / [employer] Insert Tibial Knee Fixed Lm Posterior Stabilized Attune 7mm Size 7 Polyethylene [id number] - [id number] Implanted:Qty: 1 on 08/20/2022 by Brandon Luis MD at [facility] Left: Knee [employer] [id number] 05/29/2030 [id number] / / [employer] Attune Fb Tib Base Sz 7 Por [id number] - [id number] Implanted:Qty: 1 on 08/20/2022 by Brandon Luis MD at [facility] Left: Knee [employer] [id number] 05/29/2032 [id number] / / [employer] Bi Mentum 53mm Press Fit Femoral Proximal Cup Acetabular [id number] - [id number] Implanted:Qty: 1 on 01/15/2023 by Brandon Luis MD at [facility] Right: Hip [employer] [id number] / / [id number] [employer] Liner Acet Hip Size 28 Poly Bi Mentum Altrx 53mm [id number] - [id number] Implanted:Qty: 1 on 01/15/2023 by Brandon uLis MD at [facility] Right: Hip [employer] 10/29/2026 [id number] / / [id number] [employer] Actis L111 Mm Collar Hip 8 High Offset Stem Femoral [id number] - [id number] Implanted:Qty: 1 on 01/15/2023 by Brandon Luis MD at [facility] Right: Hip [employer] [id number] 06/28/2032 [id number] / / [id number] [employer] Articul/Clarence 28mm Cementless Hip +1.5mm 12/14 Taper Head Femoral Latex Free [id number] - [id number] Implanted:Qty: 1 on 01/15/2023 by Brandon Luis MD at [facility] Right: Hip [employer] 09/29/2027 [id number] / / [id number] Insurance [facility] CHOICE PLUS [facility] CHOICE PLUS Advance Directives For more information, please contact: [phone] * Full Code (Latest Code Status on File) Date Activated Date Inactivated Comments 08/20/2022 8:32 AM 08/20/2022 4:30 PM Care Teams Livestock Sales Representative Relationship Specialty Start Date End Date Starr Werner MD PCP - General Family Medicine 11/14/21
--- OUTSIDE RECORDS SUMMARY | 2024-06-07 10:21 | XMS_ITS | Clinical Summary ---
Author Organization [facility] Address [address] [place] [address] Care Team Providers Care Basin Cleaner Name Role Phone Unavailable Primary Care Provider [...] Comments Blood Pressure 100/70 01/28/2017 2:01 PM FINANCIAL SALES ASSOCIATE Pulse 76 01/28/2017 2:01 PM FINANCIAL SALES ASSOCIATE Temperature - - Respiratory Rate - - Oxygen Saturation - - Inhaled Oxygen Concentration - - Weight 103 kg (227 lb) 01/28/2017 2:01 PM FINANCIAL SALES ASSOCIATE Height 169.5 cm (5' 6.75 ) 01/28/2017 2:01 PM CS T Body Mass Index 35.82 01/28/2017 2:01 PM FINANCIAL SALES ASSOCIATE Plan of Treatment Health Maintenance Due Date [...] Vaccines (1 of 2) 01/27/2012 COVID-19 Vaccine (2023-2 5 season) 2023 RSV Immunization or 60+ Years (1 [...]
== END 2024-06-07 09:24 | disposition home or self-care (01) ==
LOC: ANHIMG 09:24
PROVIDERS: PCP Family Medicine; Visit Provider Family Medicine
DX: Z78.0 Asymptomatic menopausal state (principal); M85.852 Other specified disorders of bone density and structure, left thigh
CPT/HCPCS: 77080

== ENCOUNTER 2025-01-05 08:12 | Outpatient (CLI) | payer OTHER, SELFPAY ==
--- OUTSIDE RECORDS SUMMARY | 2025-01-05 08:18 | XMS_ITS | Clinical Summary ---
Author Organization [facility] Address [address] [place] [address] Care Team Providers Care Sheet Roller Operator Name Role Phone Starr Werner MD Primary [...] (11/14/2021): Added automatically from request for surgery [id number] Surgical History Surgery Date Site/Laterality Comments KNEE [...] Comments Blood Pressure 118/58 01/15/2023 11:15 AM STATISTICAL SECRETARY Pulse 65 01/15/2023 11:20 AM STATISTICAL SECRETARY Temperature 36 C (96.8 F) 01/15/2023 11:05 AM STATISTICAL SECRETARY Respiratory Rate 24 01/15/2023 11:20 AM STATISTICAL SECRETARY Oxygen Saturation 99% 01/15/2023 11:20 AM STATISTICAL SECRETARY Inhaled Oxygen Concentration - - Weight 106.6 kg (235 lb) 01/15/2023 5:56 AM STATISTICAL SECRETARY Height 167.6 cm (5' 6) 01/15/2023 5:56 AM STATISTICAL SECRETARY Body Mass Index 37.93 01/15/2023 5:56 AM STATISTICAL SECRETARY Plan of Treatment Health Maintenance Due Date Last Done Comments Breast Cancer Screening-Mammogram 1962 Cervical Cancer Screening 1962 Colon Cancer Screening-Colonoscopy 1962 Depression Screening 1962 Hepatitis C Screening 1962 DTaP/Tdap/Td Vaccine (1 - Tdap) 1973 Hepatitis B Screening 01/27/1980 Regular Well Visit/Exam 18-64 01/27/1980 Pneumococcal vaccine <65 (1 of 2 - PCV) 1981 Zoster Vaccine (1 of 2) 01/27/2012 Covid-19 Vaccine (4 - season) 2024 03/02/2021, 07/16/2020, 06/18/2020 Influenza Vaccine (#1) 2024 Medical Devices Implanted Type Area Pharmacy Benefits Coordinator Device Identifier Shelf Expiration Date Model / Serial / Lot [employer] Smartset Medium Viscosity Cement 40gm Bone Gentamicin [id number] - [id number] Implanted:Qty: 1 on 08/20/2022 by Brandon Luis MD at [facility] Bone Cement Left: Knee [employer] [id number] 12/30/2023 [id number] / / Screws Left: Knee [employer] Attune Cruciate Retain Cementless Knee Left 7 Component Femoral [id number] - [id number] Implanted:Qty: 1 on 08/20/2022 by Brandon Luis MD at [facility] Left: Knee [employer] [id number] 06/28/2032 [id number] / / [employer] Insert Tibial Knee Fixed Lm Posterior Stabilized Attune 7mm Size 7 Polyethylene [id number] - [id number] Implanted:Qty: 1 on 08/20/2022 by Brandon Luis MD at [facility] Left: Knee [employer] [id number] 05/29/2030 [id number] / / [employer] Attune Fb Tib Base Sz 7 Por [id number] - [id number] Implanted:Qty: 1 on 08/20/2022 by Brandon Luis MD at [facility] Left: Knee [employer] [id number] 05/29/2032 [id number] / / [employer] Bi Mentum 53mm Press Fit Femoral Proximal Cup Acetabular [id number] - [id number] Implanted:Qty: 1 on 01/15/2023 by Brandon Luis MD at [facility] Right: Hip [employer] [id number] / / [id number] [employer] Liner Acet Hip Size 28 Poly Bi Mentum Altrx 53mm [id number] - [id number] Implanted:Qty: 1 on 01/15/2023 by Brandon Luis MD at [facility] Right: Hip [employer] 10/29/2026 [id number] / / [id number] Dep[employer] Actis L111 Mm Collar Hip 8 High Offset Stem Femoral [id number] - [id number] Implanted:Qty: 1 on 01/15/2023 by Brandon Luis MD at [facility] Right: Hip [employer] [id number] 06/28/2032 [id number] / / [id number] [employer] Articul/Clarence 28mm Cementless Hip +1.5mm 12/14 Taper Head Femoral Latex Free [id number] - [id number] Implanted:Qty: 1 on 01/15/2023 by Brandon Luis MD at [facility] Right: Hip [employer] 09/29/2027 [id number] / / [id number] Insurance [facility] CHOICE PLUS [facility] CHOICE PLUS Advance Directives For more information, please contact: [phone] * Full Code (Latest Code Status on File) Date Activated Date Inactivated Comments 08/20/2022 8:32 AM 08/20/2022 4:30 PM Care Teams Sheet Roller Operator Relationship Specialty Start Date End Date Starr Werner MD PCP - General Family Medicine 11/14/21
--- OUTSIDE RECORDS SUMMARY | 2025-01-05 08:18 | XMS_ITS | Patient Health Record ---
Author Organization [facility] Address [address] [place] [address] MAGAL[place] Sotomayor [address] Care Team Providers Care Wire Inserter Name Role Phone CAITLYN SILVA MD Primary Care Provider Unav ailable Janes Escobar Unavailable [phone] ALLERGIES No Known Allergies REASON FOR REFERRAL [...] ast year? No Points 0 Interpretation Negative Section Notes: The patient is . She denies tobacco, alcohol, or illicit drug abuse. PROBLEMS Problem Type ICD Code Onset Dates Problem Status W/U Status Risk SNOMED Code Notes Problem Morbid (severe) obesity due to excess calories (E66.01) Active confirmed Morbid obesity (disorder) (651596635) Problem Unilateral primary osteoarthritis, right hip (M16.11) Active confirmed Localized, primary osteoarthritis of the pelvic region and thigh (273311207) Problem Unilateral primary osteoarthritis, right knee (M17.11) Active confirmed Primary osteoarthritis (468949195) Problem Pain in right hip (M25.551) Active confirmed Arthralgia of t he pelvic region and thigh (062370358) Problem Pain in right knee (M25.561) Active confirmed Pain of right knee region (finding) (094551625861188) Problem Sacroiliitis, not elsewhere classified (M46.1) Active confirmed Solitary sacroiliitis (379278252) Problem Spondylosis without myelopathy or radiculopathy, lumbar region (M47.816) Active confirmed Lumbosacral spondylosis without myelopathy (88809420) Problem Spondylosis without myelopathy or radiculopathy, lumbosacral region (M47.817) Active confirmed Lumbosacral spondylosis without myelopathy (disorder) (38678987) Problem Other intervertebral disc degeneration, lumbar region (M51.36) Active confirmed Degeneration of lumbar intervertebral disc (74049526) Problem Radiculopathy, lumbar region (M54.16) Active confirmed Lumbar radiculopathy (468166350) Problem FCI (current) use of anticoagulants (Z79.01) Active confirmed Long-term curre nt use of anticoagulant (639802150) Problem Low back pain, unspecified (M54.50) Active confirmed Low back pain (186842027) PLAN OF TREATMENT Pending Test Test Name Order Date MRI : Lumbar Spine without contrast (721 48) 11/26/2022 Insurance Providers Payer Name Payer Address Payer Phone Subscriber Number Group Number Insured Name Patient Relationship to Insured Coverage Start Date Coverage End Date [facility] [address] [address] [place] [address] [id number] MARIA TERESA ONTIVEORS Self - patient is the insured MEDICAL (GENERAL) HISTORY Medical History History ICD Code Arthritis Surgical History Surgery Date(Month/Year) Left total knee arthroplasty-Dr. Luis 07/2022 Cholecystectomy
--- OUTSIDE RECORDS SUMMARY | 2025-01-05 08:18 | XMS_ITS | Clinical Summary ---
Author Organization [facility] Address [address] [place] [address] Care Team Providers Care Technician Assistant Name Role Phone Starr Werner MD Primary Care Provider [phone] Source Comments [facility],non-owned Affiliates and Associated Physician Practices is amultiple site organization consisting of ambulatory clinics and hospital sitesin [place], [place], [place]. This disclosure is being madepursuant to the Care Everywhere program and may not contain all information available regarding this patient. Last updated 17.[facility] Social History Tobacco Use Types Packs/Day Years Used Date Smoking Tobacco: Never Assessed Comments Unknown Sex and Gender Information Value Date Recorded Sex Assigned at Not on file Legal Sex Female 12:57 PM CDT Gender Identity Not on file [...] SCREENING 1960 LIPID TESTING 1960 MAMMOGRAM 1960 HIV SCREENING 1977 HEPATITIS C SCREENING 01/22/1980 DTAP/TDAP/TD VACCINES (1 - Tdap) 1981 PAP SMEAR 1983 PNEUMOCOCCAL VACCINE 50+ (1 of 1 - PCV) 01/27/2012 ZOSTER VACCINE (1 of 2) 01/27/2012 DEPRESSION SCREENING 03/01/2024 COVID-19 VACCINE (1 - 2023-2 5 season) 2024 INFLUENZA VACCINE (#1) 2024 Respiratory Syncytial Virus (RSV) Vaccine Pt: or [...] age to complete this topic Care Teams Technician Assistant Relationship Specialty Start Date End Date Starr Werner MD [address] [place] [address] PCP - General Family Medicine 08/20/22
[2025-01-05 12:53] LABS: Hematocrit 42.6 % (37.0-47.0); Hemoglobin 13.5 g/dL (12.0-15.0); Immature Granulocyte Percent A 0.2 % (0-0.5); Lymphocytes Absolute Auto 1.52 K/mm3 (0.9-3.2); Mean Corpuscular HGB Conc 31.7 g/dl (32-36); Mean Corpuscular Hemoglobin 30.2 pg (26-34); Mean Corpuscular Volume 95.3 fl (80-100); Nucleated Red Blood Cells Absolute Auto 0.000 K/mm3 (0.0-0.012); Nucleated Red Blood Cells Perc 0.0 % (0.0-0.2); Platelet Count Result 209 k/mm3 (150-375); Red Blood Count 4.47 M/mm3 (4.2-5.4); White Blood Count 4.3 K/mm3 (4.5-10.0)
[2025-01-05 13:10] LABS: Alanine Aminotransferase 18 U/L (6-35); Albumin Level 4.3 g/dL (3.5-5.1); Alkaline Phosphatase 72 U/L (38-126); Anion Gap 7 mmol/L (4-12); Aspartate Amino Transferase 56 U/L (14-36); Bilirubin,Total 1.0 mg/dL (0.2-1.3); Blood Urea Nitrogen 27 mg/dL (7-17); Calcium 9.0 mg/dL (8.4-10.2); Carbon Dioxide 28 mmol/L (22-30); Chloride 104 mmol/L (98-107); Cholesterol 262 mg/dL (0-200); Estimated Glomerular Filt Rate > 60; Glucose 90 mg/dL (65-110); HDL Direct 70 mg/dL; Potassium 4.6 mmol/L (3.4-5.0); Sodium 139 mmol/L (137-145); Total Protein 7.2 g/dL (6.3-8.2); Triglycerides 109 mg/dL (<150)
[2025-01-05 13:30] LABS: Hepatitis B Surface Antigen Negative (Negative)
[2025-01-05 13:36] LABS: HAV RESULT Negative (Negative); Hepatitis B Core IgM Result Negative (Negative)
[2025-01-05 13:44] LABS: Ferritin 23.60 ng/mL (11.1-264)
[2025-01-05 13:46] LABS: Thyroid Stimulating Hormone 2.000 uIU/mL (0.465-4.680)
[2025-01-05 14:05] LABS: Vitamin B12 908.0 pg/mL (239-931)
== END 2025-01-05 08:13 | disposition home or self-care (01) ==
LOC: ANHGOSHLAB 08:13
PROVIDERS: PCP Family Medicine; Visit Provider Family Medicine
DX: E78.2 Mixed hyperlipidemia (principal); R53.83 Other fatigue; R79.89 Other specified abnormal findings of blood chemistry; M85.80 Other specified disorders of bone density and structure, unspecified site; Z78.0 Asymptomatic menopausal state; E04.2 Nontoxic multinodular goiter
CPT/HCPCS: 36415; 80053; 80061; 80074; 82248; 82306; 82607; 82728; 84443; 85025; 86376

== ENCOUNTER 2025-01-08 08:40 | Outpatient (CLI) | payer OTHER, SELFPAY ==
--- NOTE | ~2025-01-08 | US_ITS ---
EXAMINATION: US thyroid DATE: 01/08/2025 08:50 INDICATION: Goiter TECHNIQUE: Multiple ultrasound images of the thyroid were obtained. COMPARISON: None. FINDINGS: The right thyroid lobe measures 3.9 x 1.6 x 1.3 cm. The left thyroid lobe measures 4.1 x 1.4 x 1.4 cm. Isthmus measures 2.1 mm 1.1 x 0.5 cm TI-RADS 2 nodule in the left lobe of the thyroid. Subcentimeter thyroid TI-RADS 2-3 nodules are noted in both lobes. Echotexture and vascular flow for the thyroid appears within normal limits. IMPRESSION: 1. Normal size thyroid. Echotexture and vascular flow appear normal. 2. Small bilateral thyroid nodules, including subcentimeter nodules with indeterminate sonographic features. Recommend correlation with follow-up thyroid ultrasound in 12 months with recommended dated next exam on or about January 082025. Reviewed, dictated and finalized at location A. OMER SUPPORT ADVISOR IMPRESSION: 1. Normal size thyroid. Echotexture and vascular flow appear normal. 2. Small bilateral thyroid nodules, including subcentimeter nodules with indete rminate sonographic features. Recommend correlation with follow-up thyroid ultr asound in 12 months with recommended dated next exam on or about January 082025.
== END 2025-01-08 08:41 | disposition home or self-care (01) ==
LOC: GOSHIMG 08:40
PROVIDERS: PCP Family Medicine; Visit Provider Family Medicine
DX: E04.1 Nontoxic single thyroid nodule (principal)
CPT/HCPCS: 76536

== ENCOUNTER 2025-02-12 16:23 | Outpatient (CLI) | payer OTHER, SELFPAY ==
--- NOTE | ~2025-02-12 | CT_ITS ---
EXAM/PROCEDURE: CT soft tissue neck w con HISTORY: M54.2 - Cervicalgia COMPARISON: None available. TECHNIQUE: IV contrast-enhanced soft tissue neck CT FINDINGS: Oral facial region obscured by moderate to large amount of artifact associated with dental amalgam. Several nonpathologic sized bilateral jugulodigastric, posterior triangle and occipital submental and sternocleidomastoid lymph nodes. No dominant or pathologic size mass/lymph nodes. No drainable fluid collection. Retropharyngeal and parapharyngeal spaces are symmetric. Fossae of Rosenmuller appear normal. Vocal cord regions appear grossly normal. Vascular structures patent. Diffuse degenerative changes throughout the cervical spine with potential spinal canal stenosis C5-6 associated with posterior disc ossify complex. 5 mm left thyroid nodule. The remainder the thyroid appears normal. No acute process seen in the visualized portions of the upper chest or intracranial contents. IMPRESSION: 1. No discrete lesion or mass seen to explain patient's symptoms. Consider correlation with endoscopic evaluation for optimal evaluation. 2. Chronic appearing findings as above including 5 mm thyroid nodule which could be better evaluated with follow-up thyroid ultrasound, and possibly spinal canal stenosis at C5-6. Reviewed, dictated and finalized at location A. GER LPN IMPRESSION: 1. No discrete lesion or mass seen to explain patient's symptoms. Consider krysten elation with endoscopic evaluation for optimal evaluation. 2. Chronic appearing findings as above including 5 mm thyroid nodule which coul d be better evaluated with follow-up thyroid ultrasound, and possibly spinal ca nal stenosis at C5-6.
--- OUTSIDE RECORDS SUMMARY | 2025-02-12 18:14 | XMS_ITS | Patient Health Record ---
Author Organization [facility] Address [address] [place] [address] MAGALIS Sotomayor [address] Phone [phone] Care Team Providers Care Employment Trainer Name Role Phone CAITLYN SILVA MD Primary Care Provider Unav mary kate Escobar MD, [facility] Allergies No Known Allergies Reason For Referral No Information Medications Medication SIG (Take, Route, Frequency, Duration) Notes Start Date End Date Diagnosis (ICD Code) Status Meloxicam 15 MG Tablet 1 tablet Orally Once a day; Duration: 30 day(s) Active Tylenol Extra Strength 500 MG Tablet 1 tablet as needed Orally every 6 hrs Active Magnesium Active oxyCODONE HCl 5 MG Tablet 1 tablet as needed Orally every 6 hrs Active traMADol HCl 50 MG Tablet 1 tablet as needed Orally Once a day Active Social History Tobacco Use: Social History Observation Description Date Details (start date - stop date) Never Smoker NA - NA Sex Observation Social History Observation Description Sex Observation Female Social History Drugs/Alcohol: Social Info Question Answer Notes Alcohol Screen (Audit-C) Did you have a drink containing alcohol in the past year? No Points 0 Interpretation Negative Drugs Have you used drugs other than those for medical reasons in the past 12 months? No Tobacco Use: Social Info Question Answer Notes Tobacco Use/Smoking Are you a nonsmoker Section Notes: The patient is . She denies tobacco, alcohol, or illicit drug abuse. Problems Problem Type SNOMED Code ICD Code Dates Problem Status W/U Status Risk Notes Problem Morbid obesity (disorder) (527431915) Morbid (severe) obesity due to excess calories (E66.01) Added On:11/26 Active confirmed Problem Localized, primary osteoarthritis of the pelvic region and thigh (464388355) Unilateral primary osteoarthritis, right hip (M16.11) Added On:11/26 Active confirmed Problem Primary osteoarthritis (952587398) Unilateral primary osteoarthritis, right knee (M17.11) Added On:11/26 Active confirmed Problem Arthralgia of the pelvic region and thigh (795916164) Pain in right hip (M25.551) Added On:11/26 Active confirmed Problem Pain of right knee region (finding) (782408755314799) Pain in right knee (M25.561) Added On:11/26 Active confirmed Problem Solitary sacroiliitis (558859202) Sacroiliitis, not elsewhere classified (M46.1) Added On:11/26 Active confirmed Problem Lumbosacral spondylosis without myelopathy (52780413) Spondylosis without myelopathy or radiculopathy, lumbar region (M47.816) Added On:11/26 Active confirmed Problem Lumbosacral spondylosis without myelopathy (disorder) (18664721) Spondylosis without myelopathy or radiculopathy, lumbosacral region (M47.817) Added On:11/26 Active confirmed Problem Degeneration of lumbar intervertebral disc (06982210) Other intervertebral disc degeneration, lumbar region (M51.36) Added On:11/26 Active confirmed Problem Lumbar radiculopathy (841614424) Radiculopathy, lumbar region (M54.16) Added On:11/26 Active confirmed Problem Long-term current use of anticoagulant (898978506) snf (current) use of anticoagulants (Z79.01) Added On:11/26 Active confirmed Problem Low back pain (571237967) Low back pain, unspecified (M54.50) Added On:11/26 Active confirmed Plan Of Treatment Pending Test Test Name Order Date MRI : Lumbar Spine without contrast (728 48) 11/26/2022 Insurance Providers Payer Name Payer Address Payer Phone Subscriber Number Group Number Insured Name Patient Relationship to Insured Coverage Start Date Coverage End Date [facility] [address] [address] [place] [address] [id number] MARIA TERESA ONTIVEROS Self - patient is the insured Medical (General) History Medical History History ICD Code Arthritis Surgical History Surgery Date(Month/Year) Left total knee arthroplasty-Dr. Luis 07/2022 Cholecystectomy
--- OUTSIDE RECORDS SUMMARY | 2025-02-12 18:15 | XMS_ITS | Clinical Summary ---
Author Organization [facility] Address [address] [place] [address] Care Team Providers Care Jumpbasting Collar Baster Name Role Phone Starr Werner MD Primary [...] (11/14/2021): Added automatically from request for surgery [id number] Surgical History Surgery Date Site/Laterality Comments KNEE [...] Comments Blood Pressure 118/58 01/15/2023 11:15 AM EQUIPMENT OPERAT0R Pulse 65 01/15/2023 11:20 AM EQUIPMENT OPERAT0R Temperature 36 C (96.8 F) 01/15/2023 11:05 AM EQUIPMENT OPERAT0R Respiratory Rate 24 01/15/2023 11:20 AM EQUIPMENT OPERAT0R Oxygen Saturation 99% 01/15/2023 11:20 AM EQUIPMENT OPERAT0R Inhaled Oxygen Concentration - - Weight 106.6 kg (235 lb) 01/15/2023 5:56 AM EQUIPMENT OPERAT0R Height 167.6 cm (5' 6) 01/15/2023 5:56 AM EQUIPMENT OPERAT0R Body Mass Index 37.93 01/15/2023 5:56 AM EQUIPMENT OPERAT0R Plan of Treatment Health Maintenance Due Date Last Done Comments Breast Cancer Screening-Mammogram 1962 Cervical Cancer Screening 1962 Colon Cancer Screening-Colonoscopy 1962 Depression Screening 1962 Hepatitis C Screening 1962 DTaP/Tdap/Td Vaccine (1 - Tdap) 1973 Hepatitis B Screening 01/27/1980 Regular Well Visit/Exam 18-64 01/27/1980 Zoster Vaccine (1 of 2) 01/27/2012 Covid-19 Vaccine (2024-2 6 season) 2024 03/02/2021, 07/16/2020, 06/18/2020 Influenza Vaccine (#1) 2024 Pneumococcal vaccine <65 Aged Out No longer eligible based on patient's age to complete this topic Medical Devices Implanted Type Area Telephone Worker Device Identifier Shelf Expiration Date Model / Serial / Lot [employer] Smartset Medium Viscosity Cement 40gm Bone Gentamicin [id number] - [id number] Implanted:Qty: 1 on 08/20/2022 by Brandon Luis MD at [facility] Bone Cement Left: Knee [employer] [id number] 12/30/2023 [id number] / / Screws Left: Knee [employer] Attune Cruciate Retain Cementless Knee Left 7 Component Femoral [id number] - [id number] Implanted:Qty: 1 on 08/20/2022 by Brandon Luis MD at [facility] Left: Knee [employer] [id number] 06/28/2032 [id number] / / [employer] Insert Tibial Knee Fixed Lm Posterior Stabilized Attune 7mm Size 7 Polyethylene [id number] - [id number] Implanted:Qty: 1 on 08/20/2022 by Brandon Luis MD at [facility] Left: Knee [employer] [id number] 05/29/2030 [id number] / / [employer] Attune Fb Tib Base Sz 7 Por [id number] - [id number] Implanted:Qty: 1 on 08/20/2022 by Brandon Luis MD at [facility] Left: Knee [employer] [id number] 05/29/2032 [id number] / / [employer] Bi Mentum 53mm Press Fit Femoral Proximal Cup Acetabular [id number] - [id number] Implanted:Qty: 1 on 01/15/2023 by Brandon Luis MD at [facility] Right: Hip [employer] [id number] / / [id number] [employer] Liner Acet Hip Size 28 Poly Bi Mentum Altrx 53mm [id number] - [id number] Implanted:Qty: 1 on 01/15/2023 by Brandon Luis MD at [facility] Right: Hip [employer] 10/29/2026 [id number] / / [id number] [employer] Actis L111 Mm Collar Hip 8 High Offset Stem Femoral [id number] - [id number] Implanted:Qty: 1 on 01/15/2023 by Brandon Luis MD at [facility] Right: Hip [employer] [id number] 06/28/2032 [id number] / / [id number] [employer] Articul/Clarence 28mm Cementless Hip +1.5mm 12/14 Taper Head Femoral Latex Free [id number] - [id number] Implanted:Qty: 1 on 01/15/2023 by Brandon Luis MD at [facility] Right: Hip [employer] 09/29/2027 [id number] / / [id number] Insurance [facility] CHO[facility] [employer] HMO/PPO Address: [address] [facility] CHO[employer] [facility] HMO/PPO Address: [facility] [address] [place] [address] Advance Directives For more information, please contact: [phone] * Full Code (Latest Code Status on File) Date Activated Date Inactivated Comments 08/20/2022 8:32 AM 08/20/2022 4:30 PM Care Teams Jumpbasting Collar Baster Relationship Specialty Start Date End Date Starr Werner MD PCP - General Family Medicine 11/14/21
--- OUTSIDE RECORDS SUMMARY | 2025-02-12 18:15 | XMS_ITS | Clinical Summary ---
Author Organization [facility] Address [address] [place] [address] Care Team Providers Care Machinist Apprentice Wood Name Role Phone Unavailable Primary Care Provider [...] Comments Blood Pressure 100/70 01/28/2017 2:01 PM DIRECTOR FOOD AND BEVERAGE Pulse 76 01/28/2017 2:01 PM DIRECTOR FOOD AND BEVERAGE Temperature - - Respiratory Rate - - Oxygen Saturation - - Inhaled Oxygen Concentration - - Weight 103 kg (227 lb) 01/28/2017 2:01 PM DIRECTOR FOOD AND BEVERAGE Height 169.5 cm (5' 6.75) 01/28/2017 2:01 PM CS T Body Mass Index 35.82 01/28/2017 2:01 PM DIRECTOR FOOD AND BEVERAGE Plan of Treatment Health Maintenance Due Date [...] Screening with HPV 01/27/1992 Mammogram Screening 2002 Pneumococcal Vaccine: 50+ Ye ars (1 of 1 - PCV) 01/27/2012 Zoster Vaccines (1 of 2) 01/27/2012 COVID-19 Vaccine ( - 2024-2 6 season) 2024 Influenza Adult (#1) 2024 RSV Immunization or 60+ Years (1 - 1-dose 75+ series) 2037 Hepatitis A Vaccines Aged Out No long er eligible based on patient's age to complete this topic Meningococcal B Vaccine Aged Out No l onger eligible based on patient's age to complete this topic Meningococcal Vaccine Aged Out No ariella annabel eligible based on patient's age to complete this topic RSV Immunizations Under 20 Months Aged Out No longer eligible based on patient's age to complete this topic
--- OUTSIDE RECORDS SUMMARY | 2025-02-12 18:15 | XMS_ITS | Clinical Summary ---
Author Organization [facility] Address [address] [place] [address] Care Team Providers Care Roller Leveler Operator Name Role Phone Starr Werner MD Primary Care Provider [phone] Source Comments [facility],non-owned Affiliates and Associated Physician Practices is amultiple site organization consisting of ambulatory clinics and hospital sitesin [place], [place], [place] and [place]. This disclosure is being madepursuant to the Care Everywhere program and may not contain all information available regarding this patient. Last updated 17.[facility] Social History Tobacco Use Types Packs/Day Years [...] DEPRESSION SCREENING 03/01/2024 COVID-19 VACCINE (1 - 2024-2 6 season) 2024 INFLUENZA VACCINE (#1) 2024 Respiratory [...] age to complete this topic Care Teams Roller Leveler Operator Relationship Specialty Start Date End Date Starr Werner MD [address] [place] [address] PCP - General Family Medicine 08/20/22
[2025-02-13 11:04] LABS: Estimated Glomerular Filt Rate > 60
== END 2025-02-12 16:24 | disposition home or self-care (01) ==
PROVIDERS: PCP Family Medicine; Visit Provider Otolaryngology
DX: M54.2 Cervicalgia (principal)
CPT/HCPCS: 70491; Q9967